=== PATIENT | female | born 1990 | race Caucasian/White ===

== ENCOUNTER → 2017-01-22 | Outpatient (CLI) | payer BC, MEDICAID ==
[~2017-01-22] MED LIST: APRI; VICODIN 5/500
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
== END ==
LOC: RAD 16:55
PROVIDERS: ATTEND Nurse Practitioner Adult Health
DX: S00.83XA Contusion of other part of head, initial encounter (principal); V49.9XXA Car occupant (driver) (passenger) injured in unspecified traffic accident, initial encounter; Y92.410 Unspecified street and highway as the place of occurrence of the external cause; Y99.8 Other external cause status
CPT/HCPCS: 70486